=== PATIENT | male | born 1965 | race African-American/Black ===

== ENCOUNTER 2024-04-17 13:12 | Emergency (ER) | payer OTHER ==
[2024-04-17 13:24] VITALS: RESP 18; BMI 27.0
[2024-04-17] MEDS ORDERED: ACETAMINOPHEN INJECTION 100 ML IVPB ONE (14:54)
[2024-04-17] MEDS: ACETAMINOPHEN 1000 MG/100 ML BAG IVPB ONE (15:13)
[2024-04-17 15:24] LABS: EPI CELLS 19 /uL (0-25.1); HYALINE CASTS 0 /uL (0-3.1); URINE APPEARANCE CLEAR; URINE BACTERIA 72 /uL (0-1359); URINE BILIRUBIN NEGATIVE (NEGATIVE); URINE COLOR YELLOW; URINE GLUCOSE (UA) NEGATIVE (NEGATIVE); URINE KETONE NEGATIVE (NEGATIVE); URINE LEUK ESTERASE TRACE (NEGATIVE); URINE NITRITE NEGATIVE (NEGATIVE); URINE PROTEIN NEGATIVE (NEGATIVE); URINE RBC 11 /uL (0-23.9); URINE UROBILINOGEN 0.2 mg/dL (0.2-1.0); URINE WBC 21 /uL (0-25.8)
[2024-04-17 15:27] LABS: BASO % 0.9 % (0-2.0); EOS % 14.2 % (0-4.5); HEMATOCRIT 35.5 % (35.4-49); HEMOGLOBIN 11.9 GM/dL (11.7-16.9); LYMPH % 31.4 % (8-40); MCH 31.3 pg (25.7-33.7); MCHC 33.6 g/dl (32.0-35.9); MEAN CELL VOLUME 93.2 fl (80-96); MONO % 7.1 % (3.8-10.2); NEUT % 46.4 % (42.8-82.8); PLATELET COUNT 383 10^3/uL (134-434); RBC 3.81 M/mm3 (4.00-5.60); RDW 13.6 % (11.9-15.9); WHITE BLOOD COUNT 6.6 K/mm3 (4.0-10.0)
[2024-04-17 15:35] LABS: INR 0.93 (0.83-1.09); PROTHROMBIN TIME (PATIENT) 10.5 SEC (9.7-13.0)
[2024-04-17 15:37] LABS: ACTIVATED PTT 33.3 SECONDS (25.2-36.5)
[2024-04-17 15:49] LABS: POTASSIUM 4.1 mmol/L (3.5-5.1)
[2024-04-17 15:52] LABS: ALBUMIN 4.3 g/dl (3.4-5.0); BLOOD UREA NITROGEN 9.1 mg/dL (7-18); CALCIUM 10.2 mg/dL (8.5-10.1)
[2024-04-17 15:56] LABS: AMYLASE 58 U/L (25-115); CREATININE 1.2 mg/dL (0.55-1.3)
[2024-04-17 15:57] LABS: BILIRUBIN,TOTAL 0.4 mg/dL (0.2-1); TOT PROT 7.9 g/dl (6.4-8.2)
[2024-04-17 17:53] VITALS: BP 139/95; PULSE 79; TEMP 98.2
[2024-04-17 18:17] LABS: PH,URINE 7.5 (5.0-8.0); URINE APPEARANCE CLEAR; URINE BILIRUBIN NEGATIVE (NEGATIVE); URINE COLOR YELLOW; URINE GLUCOSE (UA) NEGATIVE (NEGATIVE); URINE KETONE NEGATIVE (NEGATIVE); URINE LEUK ESTERASE NEGATIVE (NEGATIVE); URINE NITRITE NEGATIVE (NEGATIVE); URINE PROTEIN NEGATIVE (NEGATIVE); URINE UROBILINOGEN 0.2 mg/dL (0.2-1.0)
== END 2024-04-17 18:44 | disposition home or self-care (01) ==
LOC: JER 13:12
PROC: 3E033NZ Introduction of Analgesics, Hypnotics, Sedatives into Peripheral Vein, Percutaneous Approach (ICD-10-PCS; principal; 2024-04-17)
DX: D35.01 Benign neoplasm of right adrenal gland (principal); K40.20 Bilateral inguinal hernia, without obstruction or gangrene, not specified as recurrent; R07.89 Other chest pain; R10.12 Left upper quadrant pain
CPT/HCPCS: 36415; 71046-TC-FY; 74019-TC-FY; 74176-TC; 80053; 81003; 82150; 82378; 83690; 84153; 84484; 85025; 85610; 85730; 86301; 86850; 86900; 86901; 87086; 93005; 93010; 99285-25; J0131